=== PATIENT | male | born 1995 | race Caucasian/White ===

== ENCOUNTER → 2020-02-24 13:03 | Outpatient (BNVA) | payer OTHER, SELFPAY | PROVIDERS: Visit Provider Orthopaedic Surgery | DX: Z76.89 Persons encountering health services in other specified circumstances (principal) ==

== ENCOUNTER → 2020-03-03 10:41 | Outpatient (BNVA) | payer OTHER, SELFPAY | PROVIDERS: Visit Provider Orthopaedic Surgery | DX: Z76.89 Persons encountering health services in other specified circumstances (principal) ==

== ENCOUNTER 2020-04-12 15:50 | Outpatient (REF) | payer OTHER, SELFPAY ==
[2020-04-12 16:26] LABS: MANUAL DIFF FLAG NO
[2020-04-12 16:28] LABS: Basophils Absolute Auto 0.1 X10*3/uL (0.0-0.2); Basophils Percent Auto 0.6 % (0-2); Eosinophils Absolute Auto 0.1 X10*3/uL (0.0-0.4); Eosinophils Percent Auto 1.4 % (0-4); Hematocrit 48.1 % (42-52); Hemoglobin 16.1 g/dl (14.0-18.0); Imm Gran Abs Auto 0.02 X10*3/uL (0.00-0.03); Imm Gran Pct Auto 0.3 % (0.0-0.4); Lymphocytes Absolute Auto 2.2 X10*3/uL (1.2-4.9); Lymphocytes Percent Auto 28.2 % (20-40); Mean Corpuscular HGB Conc 33.5 g/dl (31.0-36.0); Mean Corpuscular Hemoglobin 30.3 pg (27.0-33.0); Mean Corpuscular Volume 90.6 fL (80-98); Mean Platelet Volume 8.9 fL (9.4-12.4); Monocytes Absolute Auto 0.5 X10*3/uL (0.1-1.2); Monocytes Percent Auto 6.7 % (2-11); Neutrophils Absolute Auto 4.9 X10*3/uL (2.0-8.3); Neutrophils Percent Auto 62.8 % (45-73); Platelet Count 304 X10*3/uL (160-400); Red Blood Count 5.31 X10*6/uL (4.60-5.80); Red Cell Distribution Width 12.1 % (11.0-16.0); White Blood Count 7.8 X10*3/uL (4.8-10.8)
[2020-04-12 17:22] LABS: TSH reflex Free T4 0.82 mIU/mL (0.32-4.0)
[2020-04-12 19:31] LABS: CDIFF Ag Negative (Negative); CDIFF Internal ctrl Dots and bkg OK (V); CDiff Toxin Negative (Negative)
== END 2020-04-12 15:51 | disposition home or self-care (01) ==
LOC: HO.LAB 15:50
PROVIDERS: PCP Nurse Practitioner Family; Visit Provider Nurse Practitioner Family
DX: R19.7 Diarrhea, unspecified (principal)
CPT/HCPCS: 84443; 85025; 87045; 87046; 87177; 87209; 87324; 87329; 87338; 87449

== ENCOUNTER → 2020-04-22 11:41 | Outpatient (BNVA) | payer OTHER, SELFPAY | PROVIDERS: PCP Nurse Practitioner Family; Visit Provider Physician Assistant ==

== ENCOUNTER 2020-05-01 10:15 | Outpatient (REF) | payer OTHER, SELFPAY ==
[2020-05-01 11:08] LABS: C Reactive Protein 0.08 mg/dL (< or = 0.50)
[2020-05-01 11:29] LABS: Erythrocyte Sedimentation Rate 2 MM/HR (0-15)
[2020-05-07 23:41] LABS: Calprotectin, Fecal 120 mcg/g
== END 2020-05-01 10:16 | disposition home or self-care (01) ==
LOC: HO.LAB 10:15
PROVIDERS: PCP Nurse Practitioner Family; Visit Provider Physician Assistant
DX: R19.7 Diarrhea, unspecified (principal)
CPT/HCPCS: 36415; 83993; 85652; 86140

== ENCOUNTER → 2020-05-13 14:28 | Outpatient (BNVA) | payer OTHER, SELFPAY | PROVIDERS: PCP Nurse Practitioner Family; Visit Provider Physician Assistant ==

== ENCOUNTER 2020-05-18 11:53 | Day surgery (SDC) | payer OTHER, SELFPAY ==
--- NOTE | 2020-05-17 08:36 | HO.ANESPROP2 ---
Documented by User: Vicky Segundo 05/17/20 08:37 HPI - Anesthesia Eval Consult details Narrative: 25yo M for Upper Endoscopy and Colonoscopy [facility] Active Problems Active Problems: All Active Problems (Updated 05/16/20 @ 15:43 by Karon Buck PA-C) Chronic diarrhea (Acute) Diarrhea (Acute) Acne (Acute) Injury of anterior cruciate ligament (Acute) Left ACL tear (Acute) Illness (Acute) Past Medical History Medical History Chronic diarrhea Radius/ulna fracture S/P ORIF (open reduction internal fixation) fracture (~2013) Family History Family History Mother No problems noted. Father No problems noted. 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 Meds Allergies Allergy/AdvReac Type Severity Reaction Status Date / Time amoxicillin Allergy Unknown Unknown Verified 05/13/20 14:28 Cefzil Allergy Unknown Unknown Verified 05/13/20 14:28 Exam Exam Date and Time: May 17, 2020 0836 Pertinent Lab Results Pertinent Lab Results: Laboratory Tests 04/12/20 16:12 WBC 7.8 Hgb 16.1 Hct 48.1 Plt Count 304 Assessment and Plan Assessment Anesthesia Assessment: Chart Reviewed Documented by User: Marisela Mcwilliams 05/18/20 12:43 [facility] Past Medical History Medical History Chronic diarrhea Radius/ulna fracture S/P ORIF (open reduction internal fixation) fracture (~2013) Family History Family History Mother No problems noted. Father No problems noted. Maternal Grandfather Diabetes Maternal Grandmother Diabetes Family history of problems with anesthesia: No Surgical History History of Problems with Anesthesia: No Social History Social History (Updated 05/18/20 @ 12:42 by Marisela Mcwilliams) Household Members: Friend(s) Housing: Apartment Alcohol intake: current Alcohol intake frequency: a few times a month Smoking Status: Never smoker Substance Use Type: Marijuana Last Used Substance: Hours (ago) Last Used Substance Other:: Last night Advance Directives: No Advance Directives Information Provided: Yes Recently lost weight without trying: No Current occupational status: employed 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 Meds Allergies Allergy/AdvReac Type Severity Reaction Status Date / Time amoxicillin Allergy Unknown Unknown Verified 05/13/20 14:28 Cefzil Allergy Unknown Unknown Verified 05/13/20 14:28 Exam Height,Weight and Vital Signs: Vital Signs Temp Pulse Resp BP Pulse Ox 05/18/20 12:22 98.9 F 84 16 124/67 97 Airway Mallampati Class: III (Gags when he tries to protrude tongue) TM Dist: >3cm Neck ROM: Full Heart: RRR Lungs: CTAB Assessment and Plan Assessment Anesthesia Assessment: Anesthesia Plan Discussed and Chart Reviewed Final Anesthetic Review NPO: Yes ASA Class: II Final Preanesthetic Review: No Changes in Pt Med Stat, Meds/Allgs Chart Reviewed, Consent Obtained/Reviewed and Anes Risks/Benef Reviewed Patient Risk: Low Procedure Risk: Low Assessment/Block/Sedation in SS: Assess/Block/Sedation-SS Anesthetic Plan Anesthetic Plan: MAC: Disposition: Standard PACU
[2020-05-18 12:14] VITALS: BMI 25.1
[2020-05-18 12:22] VITALS: BP 124/67; PULSE 84; RESP 16; TEMP 37.2; O2SAT 97
[2020-05-18] MEDS: Lactated Ringers 1,000 ML 100 ML IVCONT (12:49)
--- NOTE | 2020-05-18 12:58 | MHC.SHP ---
Pre-Procedural Eval Section B Chief Complaint: colitis Relevant Family History (Specify if Yes): No Relevant Social History: Other (specify) (THC) Present Medications: see Short Stay Collaborative assessment Medical History: Significant History (Chronic diarrhea Radius/ulna fracture S/P ORIF (open reduction internal fixation) fracture (~2013)) History of Previous Operations: Relevant previous surgery/procedure and date(s) Allergies: Allergies Allergy/AdvReac Type Severity Reaction Status Date / Time amoxicillin Allergy Unknown Unknown Verified 05/13/20 14:28 Cefzil Allergy Unknown Unknown Verified 05/13/20 14:28 Review of Systems Sugical H&P ROS: Negative: Constitution, Cardiovascular, Respiratory, Neurological, Psychiatric, Hem-Onc, Allergic/Immunologic, Gastrointestinal, Genitourinary, Musculoskeletal, Integumentary, Endocrine and Eyes/Ears/Nose/Throat Exam Surgical H&P Exam: Normal: HEENT, Normal: Heart, Normal: Lungs, Normal: Extremities, Normal: Abdomen, Normal: Skin and Normal: Neurological Plan Diagnosis/Plan: Unchanged I have reviewed the history and physical and performed a pertinent physical examination on my patient. No changes have occurred unless specified.
--- NOTE | 2020-05-18 13:47 | PM.OP ---
Brief Operative Note Date of Service: 05/18/20 Pre-op diagnosis: diarrhea Post-op diagnosis: same Procedure: see op note Surgeon: Evelyn Floyd MD Anesthesia: MAC Estimated blood loss (mL): 0 Condition: stable Disposition: PACU
--- NOTE | 2020-05-18 13:48 | W.PM.OPN ---
Operative Note Operative Note Date of Service: 05/18/20 Narrative: Operative Information Procedure Description: EGD, Colonoscopy FLEXIBLE TRANSORAL UPPER GASTROINTESTINAL ENDOSCOPY AND COLONOSCOPY PROCEDURE NOTE UPPER ENDOSCOPY Consent: Indications for the procedure and potential complications of bleeding, perforation, reaction to medications and missed diagnosis were discussed with the patient and informed consent was obtained. Instrument: Olympus GIF H 190 J mid size upper endoscope Monitoring: Vital signs and clinical assessment, continuous EKG monitoring, Pulse oximetry, Carbon Dioxide monitoring and blood pressure monitoring were done throughout the procedure. Procedure: The patient was placed in the left lateral decubitis position and pre-procedure medications were administered and a bite block was placed. The endoscope was inserted into the mouth and advanced under direct vision to the third part of duodenum. A careful inspection was made as the upper endoscope was withdrawn including a retroflexed examination of the proximal stomach; Findings and interventions are described below. Findings: Larynx:normal Esophagus: GE junction at 38 cm, diaphragm hiatus at 38 cm, normal mucosa, bx taken Stomach: Mild gastritis. Biopsies were obtained. Grade 2 flap valve on retroflexed examination of the cardia. Duodenum: bulbar erythema with small erosion, bx taken Intervention: Biopsies as noted above COLONOSCOPY Instrument: Olympus variable stiffness pediatric scope 190L Colonoscopy Monitoring: Vital signs and clinical assessment, continuous EKG monitoring, Pulse oximetry, Carbon Dioxide monitoring and blood pressure monitoring were done throughout the procedure. Colon withdrawal time was 15 minutes. Procedure: The patient was placed in the left lateral decubitis position and pre-procedure medications were administered. After a digital rectal examination of the ano-rectum, the video colonoscope was inserted into the rectum and advanced through the colon to the cecum/TI. The colonoscope was slowly withdrawn in a retrograde panoramic fashion and the colon mucosa was carefully examined including a retroflexed view of the rectum. Findings and interventions are described below. Procedure Difficulty:easy Findings: Terminal Ileum-normal, bx taken right side and transverse/left colon bx taken in separate jars Cecum:normal Ascending Colon: normal Transverse Colon -normal Descending Colon:normal Sigmoid Colon: normal Rectum: Retroflexion with small internal hemorrhoids, grade I-skin tags noted Anorectum - normal Colon preparation: [place] Bowel Preparation Scale Right colon; 3 Transverse colon: 3 Left colon; 3 (0 = Unprepared colon segment with mucosa not seen due to solid stool that cannot be cleared. 1 = Portion of mucosa of the colon segment seen, but other areas of the colon segment not well seen due to staining, residual stool and/or opaque liquid. 2 = Minor amount of residual staining, small fragments of stool and/or opaque liquid, but mucosa of colon segment seen well. 3 = Entire mucosa of colon segment seen well with no residual staining, small fragments of stool or opaque liquid) Impression and Post Procedure Diagnosis: Endoscopy Findings: gastritis duodenitis Colonoscopy Findings: internal hemorrhoids Plan: Await Pathology results Repeat Colonoscopy aged 45 years or earlier if clinically indicated High fiber diet leaflet avoid straining at stool, epsom salts and sitz bath, anusol supps or cream as needed if bx neg then consider CTe (c diff, giardia and other lasb noted and were neg recently) may benefit from trial of PPI, check nsaid usage Above findings were reviewed with the patient and relevant handouts were provided if indicated.
[2020-05-18 13:53] VITALS: BP 105/42; PULSE 77; RESP 20; TEMP 36.3; O2SAT 98
[2020-05-18 14:08] VITALS: BP 101/46; PULSE 65; RESP 16; O2SAT 97
[2020-05-18 14:23] VITALS: BP 97/52; PULSE 60; RESP 16; O2SAT 99
[2020-05-18 14:37] VITALS: BP 114/72; PULSE 74; RESP 17; O2SAT 100
== END 2020-05-18 15:14 | disposition home or self-care (01) ==
PROVIDERS: PCP Nurse Practitioner Family; Visit Provider Internal Medicine Gastroenterology
PROC: (CPT 45380; principal; 2020-05-18 13:50)
DX: K52.9 Noninfective gastroenteritis and colitis, unspecified (principal); K64.8 Other hemorrhoids; F12.90 Cannabis use, unspecified, uncomplicated; K29.50 Unspecified chronic gastritis without bleeding; K29.80 Duodenitis without bleeding; K44.9 Diaphragmatic hernia without obstruction or gangrene; K64.4 Residual hemorrhoidal skin tags
CPT/HCPCS: 45380; 43239; 88305; 88342

== ENCOUNTER 2020-06-11 13:37 | Outpatient (REF) | payer OTHER, SELFPAY ==
--- NOTE | ~2020-06-11 | CT_ITS ---
EXAMINATION: CT ENTEROGRAPHY ABDOMEN AND PELVIS WITH CONTRAST CLINICAL INFORMATION: Noninfected gastroenteritis and colitis COMPARISON: None TECHNIQUE: Study performed with oral VoLumen (1350 mL) and 480 mL of water to distend the abdomen. The patient was injected with 85 mL Omnipaque 350 intravenous contrast which was administered without adverse effect. Coronal and sagittal reformatted images were obtained at the technologist's workstation. This CT examination was performed using dose optimization techniques as appropriate, variously including the following: *Automated exposure control *Adjustment of mA and/or kV according to patient size (this includes techniques or standardized protocols for targeted exams where dose is matched to indication/reason for exam; i.e. extremities or head) *Use of iterative reconstruction technique DLP: 273 mGy-cm FINDINGS: GASTROINTESTINAL FINDINGS: Stomach: Well-distended and normal in appearance. Small intestine: Satisfactorily distended and normal in appearance. Large intestine: Well-distended and normal in appearance. No perirectal changes demonstrated. The appendix is not seen. Additional findings: No abnormal enhancement of the vasa recta or significant mesenteric or retroperitoneal lymphadenopathy is seen. No abdominal abscess or fistulous tract demonstrated. ABDOMINAL AND PELVIC CT FINDINGS: Liver, gallbladder, biliary tract: Normal Pancreas: Normal Spleen: Normal Adrenal glands and kidneys: Normal Ureters and bladder: Normal Lymphovascular structures: Normal Bones: Normal Lung bases: Normal CT/CT enterography IMPRESSION: Unremarkable examination.
[2020-06-11] MEDS: Sorbitol/Mannit/Xanth Imaging 500 ML LIQUID 1500 ML PO (15:41)
== END 2020-06-11 13:38 | disposition home or self-care (01) ==
LOC: HO.US 13:37
PROVIDERS: Visit Provider Internal Medicine Gastroenterology
DX: K52.9 Noninfective gastroenteritis and colitis, unspecified (principal)
CPT/HCPCS: 74177; Q9967

== ENCOUNTER → 2020-07-20 11:34 | Outpatient (BNVA) | payer OTHER, SELFPAY | PROVIDERS: PCP Nurse Practitioner Family; Visit Provider Internal Medicine Gastroenterology ==

== ENCOUNTER → 2020-09-08 09:07 | Outpatient (BNVA) | payer OTHER, SELFPAY | PROVIDERS: PCP Nurse Practitioner Family; Visit Provider Orthopaedic Surgery ==

== ENCOUNTER 2020-09-23 06:02 | Day surgery (SDC) | payer OTHER, SELFPAY ==
[2020-09-15 14:23] VITALS: BMI 24.7
--- NOTE | 2020-09-22 08:29 | P.CONAN_ITS ---
Documented by User: Vicky Segundo 09/22/20 08:30 HPI - Anesthesia Eval Consult details Narrative: 25yo M for Left ACL Allograft Reconstruction [facility] Active Problems Active Problems: All Active Problems (Updated 09/15/20 @ 14:28 by Samantha Esposito) Illness (Acute) Left ACL tear (Acute) Injury of anterior cruciate ligament (Acute) Acne (Acute) Diarrhea (Acute) Chronic diarrhea (Acute) Past Medical History Medical History Chronic diarrhea COVID-19 vaccine series completed Radius/ulna fracture Family History Family History Mother No problems noted. Father No problems noted. Maternal Grandfather Diabetes Maternal Grandmother Diabetes Family history of problems with anesthesia: No Surgical History Surgical History History of esophagogastroduodenoscopy (EGD) Hx of colonoscopy S/P ORIF (open reduction internal fixation) fracture (~2013) History of Problems with Anesthesia: No Social History Social History Household Members: Friend(s) Household Members Other:: roomates Housing: Apartment Are you a primary careers counsellor to a significant other at home: No Do you presently have visiting nurse or other home services: No Alcohol intake: current Alcohol intake frequency: a few times a month Patient Tobacco Use Status: Never used Tobacco Use of substances other than those prescribed or required for medical reasons: Yes Substance Use Type: Marijuana Substance Use Frequency: Daily Have you been hit, kicked, punched, or otherwise hurt by someone within the past year? 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 Allergies Allergy/AdvReac Type Severity Reaction Status Date / Time amoxicillin Allergy Unknown Hives Verified 09/15/20 14:22 Cefzil Allergy Unknown Hives Verified 09/15/20 14:22 Exam Exam Date and Time: September 22, 2020 0829 Height,Weight and Vital Signs: Height 5 ft 3 in Weight 63.503 kg Assessment and Plan Assessment Anesthesia Assessment: Chart Reviewed Documented by User: Janice Campos 09/23/20 07:47 [facility] Past Medical History Medical History Chronic diarrhea COVID-19 vaccine series completed Radius/ulna fracture Family History Family History Mother No problems noted. Father No problems noted. Maternal Grandfather Diabetes Maternal Grandmother Diabetes Surgical History Surgical History History of esophagogastroduodenoscopy (EGD) Hx of colonoscopy S/P ORIF (open reduction internal fixation) fracture (~2013) Social History Social History Household Members: Friend(s) Household Members Other:: roomates Housing: Apartment Are you a primary careers counsellor to a significant other at home: No Do you presently have visiting nurse or other home services: No Alcohol intake: current Alcohol intake frequency: a few times a month Patient Tobacco Use Status: Never used Tobacco Use of substances other than those prescribed or required for medical reasons: Yes Substance Use Type: Marijuana Substance Use Frequency: Daily Have you been hit, kicked, punched, or otherwise hurt by someone within the past year? 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 Allergies Allergy/AdvReac Type Severity Reaction Status Date / Time amoxicillin Allergy Unknown Hives Verified 09/15/20 14:22 Cefzil Allergy Unknown Hives Verified 09/15/20 14:22 Exam Airway Mallampati Class: II TM Dist: >3cm Neck ROM: Full Assessment and Plan Assessment Anesthesia Assessment: Anesthesia Plan Discussed and Chart Reviewed Final Anesthetic Review NPO: Yes ASA Class: I Final Preanesthetic Review: No Changes in Pt Med Stat, Meds/Allgs Chart Reviewed, Consent Obtained/Reviewed and Anes Risks/Benef Reviewed Patient Risk: Low Procedure Risk: Low Assessment/Block/Sedation in SS: Assess/Block/Sedation-SS Anesthetic Plan Anesthetic Plan: GA Disposition: Standard PACU
[2020-09-23] VITALS (13 sets, daily range): BP systolic 99–138; BP diastolic 53–89; PULSE 53–93; RESP 12–16; TEMP 36.3–36.7; O2SAT 89–99
[2020-09-23] MEDS: Lactated Ringers 1,000 ML 100 ML IVCONT (06:40)
--- NOTE | 2020-09-23 07:22 | MHC.SHP ---
Pre-Procedural Eval Section A Date of Service: 09/23/20 The patient is an INPATIENT: No Changes since office visit: No Cold of Flu in the past 2 weeks, No New Medical Problems, No Changes in Medication and No Patient answered all questions The History & Physical has been completed within 30 days and I have reviewed it.: Yes Section B Chief Complaint: sprain of anterior cruciate ligament Allergies: Allergies Allergy/AdvReac Type Severity Reaction Status Date / Time amoxicillin Allergy Unknown Hives Verified 09/15/20 14:22 Cefzil Allergy Unknown Hives Verified 09/15/20 14:22 Plan I have reviewed the history and physical and performed a pertinent physical examination on my patient. No changes have occurred unless specified.
--- NOTE | 2020-09-23 08:49 | P.OP_ITS ---
Operative Note Operative Note Date of Service: 09/23/20 Narrative: OPERATIVE NOTE-ACL RECONSTRUCTION SURGEON: Dr Luis Riley) Instrum COLLEGE AND CAREER COUNSELOR: Bentley BLANCO PREOP DIAGNOSIS: ACL DEFICIENT LEFT KNEE] POSTOP DIAGNOSIS: SAME OPERATIVE PROCEDURE: ACL RECONSTRUCTION WITH BTB ALLOGRAFT LEFT KNEE CLINICAL NOTE: This gentleman injured his knee and subsequent investigations indicated he had an ACL tear of his left knee. After explaining the risk, benefits and alternatives and answering all his questions it was mutually agreed to carry out the following procedure MOTION: Full range of motion STABILITY: Positive Anali's and pivot shift. Collateral ligaments intact OPERATIVE DETAILS PREPARATION: GA, STANDARD TECHNIQUE, tourniquet to 300 mm of mercury for 47 minutes SURGICAL TIME-OUT: Patient is identified. Procedure confirmed. Site confirmed. Medical and allergy history is reviewed. Preoperative antibiotics were given. Standard DVT prophylaxis in place. All other items discussed and agreed upon. INCISIONS: Superolateral, inferolateral, inferomedial stab incisions. Proximal medial metaphyseal incision for tibial tunnel and graft insertion SYNOVIUM: Clear SYNOVIAL fluid: Clear MEDIAL COMPARTMENT: medial meniscus, femoral and tibial articular surfaces were stable and intact LATERAL COMPARTMENT: lateral meniscus, femoral and tibial articular surfaces and popliteus tendon all stable and intact ANTERIOR COMPARTMENT: medial and lateral gutters clear, suprapatellar pouch clear, patella and femoral sulcus articular surfaces intact INTERCONDYLAR NOTCH: He ACL was visualized scarred back to PCL. There was very narrow notch. Using the Ultra cut as well as the ArthroCare the remainder of the ACL was. The soft tissues cleared from intercondylar notch position. Using the Ultra cut the notch was contoured in order to take it from a v-shaped to u shape. Using the Arthrex tibial guide tibial tunnel was established through an incision in the proximal medial aspect of the tibia in standard fashion. The guidewire had been inserted and then the 10 mm headed Reamer was used in order to create canal. Soft tissues removed and the canal was rasped. Simultaneous to the tibial tunnel being established, the allograft was prepared. It measured to 110 mm length. Both bone blocks for 30 mm. Drill holes were placed in both ends. The femoral side had Maxon sutures placed. The tibial si de had Tycron sutures placed. The graft was then protected. The femoral tunnel was established in standard fashion using the [id number] guide. It was taken out to the 2 o'clock position. It was then drilled with the Carmageddonh guidewire. The 10 mm headed Reamer was then placed over the guidewire taken through the tibial tunnel to the physician in the [id number] position of the femur. A footprint was made. There was good posterior wall. It was then reamed out to a 35 mm depth. The coin machine assembler Was used in standard fashion. The knee was then flushed of all bony fragments. The graft was brought up. The Maxon sutures were placed through the eye of the Beath needle the graft was then passed through the tibial tunnel, across the PCL and easily into the femoral tunnel. Through the inferomedial portal the guidewire for the BioScrew was placed. The knee was flexed up until it was parallel. An 8 x 25 mm screw was then inserted with excellent purchase. The knee was then cycled a number of times. With the knee now it 15 degrees of flexion with the graft it tension and over a guidewire, an 8 x 25 mm BioScrew was inserted in the tibial side. At this point the knees had easy full range of motion. Had a negative Anali's and pivot shift. And therefore proceeded to closure. The tourniquet was let down at this point. Incisions approximated using interrupted 3-0 Polysorb. Dermabond Steri-Strips and sterile dressing were then applied. The knee was then placed in a knee brace locked straight. The anesthesia was then reversed patient was then transferred to the room bed and then taken to the recovery room in good condition. Intraoperatively there was no blood loss of significance. No complications.
[2020-09-23] MEDS: fentaNYL citrate/PF 100 MCG/2 ML VIAL 50 MCG IVPUSH (09:37)
[2020-09-23] MEDS: oxyCODONE HCl Immed Release 5 MG TABLET PO ×2 (09:40→10:05)
[2020-09-23] MEDS: Ketorolac Tromethamine 30 MG/ML VIAL IVPUSH (10:20)
--- NOTE | 2020-09-23 13:17 | PC.NURSE ---
1310 PT IN RECOVERY ROOM AFTER EARLIER NAUSEA STS HE FEELS MUCH BETTER NOW AND IS READY TO GO HOME, COLOR IMPROVED WARM DRY PINK, TO DC AREA IN WC @[phone]
== END 2020-09-23 14:01 | disposition home or self-care (01) ==
PROVIDERS: PCP Nurse Practitioner Family; Visit Provider Orthopaedic Surgery
PROC: (CPT 27428; principal; 2020-09-23 07:30)
DX: S83.512A Sprain of anterior cruciate ligament of left knee, initial encounter (principal); X58.XXXA Exposure to other specified factors, initial encounter; Y93.9 Activity, unspecified; Y92.9 Unspecified place or not applicable; Y99.8 Other external cause status; Z88.0 Allergy status to penicillin
CPT/HCPCS: 29888; C1713; C1763; C1769; J0131; J0171; J0690; J1100; J1885; J2250; J2405; J3010

== ENCOUNTER → 2020-10-05 09:32 | Outpatient (BNVA) | payer OTHER, SELFPAY | PROVIDERS: Visit Provider Physician Assistant ==

== ENCOUNTER → 2020-11-02 08:55 | Outpatient (BNVA) | payer OTHER, SELFPAY | PROVIDERS: Visit Provider Physician Assistant ==

== ENCOUNTER → 2020-12-14 09:00 | Outpatient (BNVA) | payer OTHER, SELFPAY | PROVIDERS: Visit Provider Physician Assistant ==

== ENCOUNTER 2021-01-24 12:27 | Outpatient (REF) | payer OTHER, SELFPAY | END 2021-01-24 12:28 | disposition home or self-care (01) | LOC: HO.LAB 12:27 | PROVIDERS: PCP Nurse Practitioner Family; Visit Provider Nurse Practitioner Family | DX: R69 Illness, unspecified (principal); Z20.822 Contact with and (suspected) exposure to COVID-19 | CPT/HCPCS: U0003; U0005 ==

== ENCOUNTER 2021-03-10 09:00 | Outpatient (RCR) | payer OTHER, SELFPAY ==
--- NOTE | 2020-09-28 15:04 | MHC.PT.EP ---
[facility] [place] Office [place] Office [place] Office [address] [phone] F: [phone] F: [phone] F: [phone] F: [phone] Physical Therapy Plan of Care Date of Evaluation: Date of Surgery: 09/23/2020 Diagnosis: ACL Reconstruction L Knee Assessment: Stiven is a 25 y/o male referred to PT 5 days s/p ACL reconstruction L knee. On PT examination he presents with 6/10 pain, increased L knee swelling, decreased L knee flexion, decreased L knee strength, and gait deviations. He would benefit from skilled PT for the aforementioned imapirements to improve his tolerance for ADLs and work-related tasks such as sleeping through the night, dressing, self care, getting out of bed, getting in the car, standing for over 10 minutes, walking, and stair negotiation. He is very motivated for PT and has great family support. Frequency and Duration: The patient will be seen 2x week for 20 weeks Short Term Goals: 1. In 2 weeks patient will present with 50% decreased pain to improve ability for sleeping through the night and self care. 2. In 3 weeks patient will present with improved ROM flexion by 30 degrees to improve ability for dressing and getting in and out of the car. Halfway Goals: 1. 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 2. In 6 weeks patient will present with L LE strength improvement by 1 MMT grade to assist with stair negotiation and ambulating for 30 minutes. 3. In 14 weeks will begin plyometric activities to perform 10 minute cheer leading warm up with 0 episodes of instability. Treatment Plan: Modalities to reduce pain, spasms and effusion. Manual therapy to restore motion and function. Therapeutic exercise to improve strength and flexibility. Neuromuscular re-education for posture and balance. Therapeutic activities to return to functional activities of daily living. Electronically signed by: Lilli Jackson PT, DPT Please sign and return to therapist. Thank you for your referral.
--- NOTE | 2021-03-21 10:41 | MHC.PT.DC ---
[facility] [place] Office [place] Office [place] Office [address] [facility] [phone] F: [phone] F: [phone] F: [phone] F: [phone] Physical Therapy Discharge Report Diagnosis: ACL Reconstruction L Knee Date of Surgery: 09/23/2020 Date of Evaluation: 09/28/20 Date of Discharge: 03/11/21 Treatments to Date: 30 Cancellations to Date: No Shows to Date: Discharge Status: Achieved Goals Improved Function Independent with HEP Discharge Summary: Pt demonstrated good control of motion with all SLS activities today. Denied any pain with activities and demonstrated stability in the surgical leg with all movements. D/C to I with HEP today as pt is moving to [place]. Electronically signed by: ELINA AYALA PT, DPT Please sign and return to therapist. Thank you for your referral.
== END 2021-03-21 10:42 | disposition home or self-care (01) ==
LOC: HO.PT 09:00
PROVIDERS: Visit Provider Physician Assistant
DX: S63.512D Sprain of carpal joint of left wrist, subsequent encounter (principal)
CPT/HCPCS: 97110; 97112; 97116; 97140; 97161; 97530

== ENCOUNTER 2024-05-12 10:35 | Emergency (ER) | payer BC, SELFPAY ==
--- NOTE | ~2024-05-12 | US_ITS ---
EXAMINATION: US ABDOMEN LIMITED CLINICAL INFORMATION: Elevated bilirubin. COMPARISON: None available. TECHNIQUE: Real-time imaging of the right upper quadrant abdominal viscera using grayscale and color Doppler technique. FINDINGS: PANCREAS: No gross peripancreatic fluid collections. There is interposed bowel gas. LIVER: There measures roughly 15 cm. No nodular surface. No solid or cystic lesion. No intrahepatic biliary ductal dilatation. GALLBLADDER: Fluid-filled contracted. No pericholecystic fluid collection or gallbladder wall thickening. COMMON BILE DUCT: 2 mm. RIGHT KIDNEY: 10 cm. Normal echotexture. No solid or cystic lesion. Normal renal cortical thickness. No hydronephrosis. Normal flow on color Doppler interrogation of the renal hilum.. FREE FLUID: None. US/US abdomen limited IMPRESSION: No cholelithiasis. Normal ultrasound liver. No hydronephrosis, right kidney. Electronically signed by: Dayton Naqvi MD 05/12/2024 02:16 PM [facility]
--- NOTE | 2024-05-12 11:40 | ED_ITS ---
HPI - Nausea/Vomiting/Diarrhea General Chief complaint: Nausea/Vomiting/Diarrhea Stated complaint: vomiting Time Seen by Provider: 05/12/24 12:16 Source: patient and family (patient's mother) Mode of arrival: ambulatory Limitations: no limitations History of Present Illness ED Provider: Rosa Elena Fuchs PA-C HPI Narrative: Patient is a 29 year old assigned male at with a history of chronic diarrhea and left ACL repair, presenting to the emergency department today with nausea and vomiting. Patient states that he had the flu days ago, recovered, and then after having some take out dinner - he began to have nausea and vomiting. Patient denies any dizziness, lightheadedness, abdominal pain, fever, chills, blurry vision, double vision, loss of vision, chest pain, difficulty breathing, shortness of breath, back pain, night sweats, pain with urination, increased urinary frequency, increased urinary urgency, blood in his urine or stool, syncope or a near syncopal episode, recent trauma or falls, bowel incontinence, bladder incontinence, or any other complaints at this time. MD elicited complaint: nausea and vomiting Associated nausea: Yes Related Data Previous Rx's ?Medication ?Instructions ?Recorded oxycodone 10 mg tablet 10 mg PO Q4-6H PRN pain #40 tabs 09/23/20 doxycycline hyclate 50 mg capsule 50 mg PO BID 14 days #28 caps 08/01/21 ondansetron 4 mg disintegrating 4 mg PO Q8H PRN nausea and 05/25/22 tablet vomiting #30 tabs ondansetron 4 mg disintegrating 4 mg PO Q8H 3 days #9 tabs 05/12/24 tablet Allergies Allergy/AdvReac Type Severity Reaction Status Date / Time amoxicillin Allergy Unknown Hives Verified 05/12/24 11:43 Cefzil Allergy Unknown Hives Verified 05/12/24 11:43 Review of Systems 2 Constitutional: Constitutional: Reports no additional constitutional complaints, Denies chills, Denies fever(s) and Denies night sweats Eyes: Eyes: Reports no additional eye complaints, Denies blurry vision, Denies change in vision, Denies diplopia, Denies eye discharge, Denies loss of vision and Denies eye pain ENT: Denies dizziness Cardiovascular: Cardiovascular: Reports no additional cardiovascular complaints, Denies chest pain, Denies lightheadedness, Denies Loss of Consciousness and Denies dyspnea Respiratory: Respiratory: Reports no additional respiratory complaints and Denies dyspnea Gastrointestinal: Gastrointestinal: Reports no additional gastrointestinal complaints, Denies abdominal pain, Denies melena, Denies hematochezia, Denies change in bowel habits, Denies change in stool character, Reports nausea and Reports vomiting Genitourinary: Genitourinary: Reports no additional male genitourinary complaints, Denies hematuria, Denies oliguria, Denies difficulty urinating, Denies dysuria, Denies urinary frequency, Denies urinary hesitancy, Denies urinary incontinence and Denies urinary urgency Musculoskeletal: Musculoskeletal: Reports no additional musculoskeletal complaints, Denies numbness and Denies tingling Neurologic: Denies dizziness, Denies loss of vision, Denies numbness and Denies tingling Psychiatric: Psychiatric: Reports no additional psychiatric complaints Endocrine: Endocrine: Reports no additional endocrine complaints Hematologic/Lymphatic: Hematologic/Lymphatic: Reports no additional hematologic/lymphatic complaints Allergic/Immunologic: Allergic/Immunologic: Reports no additional allergic/immunologic complaints [facility] Past Medical History Attestation statement: The following information was validated with the patient. (all information validated with the patient's mother) Source: old records reviewed, obtained from family (patient's mother provided additional history and confirmed the history provided by the patient) and nursing notes reviewed Medical History COVID-19 vaccine series completed Chronic diarrhea Radius/ulna fracture Surgical History History of esophagogastroduodenoscopy (EGD) Hx of colonoscopy S/P ORIF (open reduction internal fixation) fracture (~2013) Family History Family History Mother No problems noted. Father No problems noted. Maternal Grandfather Diabetes Maternal Grandmother Diabetes Social History Social History Household Members: Friend(s) Household Members Other:: roomates Housing: Apartment Are you a primary vp care management to a significant other at home: No Do you presently have visiting nurse or other home services: No Alcohol intake: current Alcohol intake frequency: a few times a month Patient Tobacco Use Status: Never used Tobacco Smoked in Last 30 Days: No Use of substances other than those prescribed or required for medical reasons: Yes Substance Use Type: Marijuana Advance Directives: No Advance Directives Information Provided: No Current occupational status: employed 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 Physical Exam 2 Vital Signs: Vital Signs: Last Vital Signs Temp 98.3 F 05/12/24 12:23 Pulse 83 05/12/24 12:23 Resp 16 05/12/24 12:23 BP 105/69 05/12/24 12:23 Pulse Ox 99 05/12/24 12:23 O2 Del Method Room Air 05/12/24 12:23 BMI result Body Mass Index 22.7 Const: General: cooperative, no acute distress, alert and awake Nutritional Appearance: well nourished Orientation/consciousness: patient oriented x3 Limitations: no limitations HEENT: Head: Yes normal to inspection and Yes atraumatic Ears: hearing grossly normal bilaterally and external ears normal General nose exam: Normal external nose present, no nasal discharge noted and no epistaxis Face and sinus: Yes normal facial exam, No abrasion and No laceration Mouth: Normal oral and palatal mucosa present, no drooling and no muffled voice Eyes: General: appearance normal, both eyes and all related structures P eriorbital: periorbital findings normal Eyelids: Yes eyelids normal C onjunctivae: conjunctivae normal Pupils: Equal, round and reactive pupils present EOM: EOMs intact bilaterally Neck: Neck: Yes normal visual inspection, Yes full ROM and Yes no lymphadenopathy Chest: Chest palpation & inspection: normal inspection of the chest Resp: Effort & Inspection: normal respiratory effort and able to speak in complete sentences GI: Inspection: Yes normal to inspection Palpation (GI): Soft to palpation, not firm, nontender, no guarding and not rigid Neuro: General: patient oriented x3, moves all extremities and CN's II-XI intact bilaterally Cranial nerves: Yes Equal, round and reactive pupils present Cognition (Neuro): normal cognition Extrem: General: Yes normal to inspection, Yes full ROM and Yes capillary refill normal Psych: Appearance: grossly normal Mental Status: mental status grossly normal Affect: normal affect Attitude: cooperative Thought process: N ormal thought process present Thought content: Normal thought content present Insight: Good insight present (Psych) Course Course Course Narrative: 29 yo male with PMH of chronic diarrhea who presents with c/o throwing up all night after eating food. He cannot keep anything down now. 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 Pos diarrhea, no fevers, pos chills, no bloody stools, he has no pain. Just feels weak. At this time suspect viral syndrome will obtain basic labs, ODT zofran. this is a RAPID medical screening exam the rest of the history and physical exam is to be done by the main provider. Medications Administered Discontinued Medications Generic Name Dose Route Start Last Admin Trade Name Marylu PRN Reason Stop Dose Admin Sodium Chloride 1,000 mls @ 999 mls/hr 05/12/24 12:30 05/12/24 14:11 Ns IV 05/12/24 13:30 Infused .Q1H1M JURGEN Infusion Metoclopramide HCl 10 mg 05/12/24 12:27 05/12/24 12:30 Metoclopramide Hcl 10 Mg/2 Ml Vial IVPUSH 05/12/24 12:28 10 mg ONCE ONE Administration Medical Decision Making Medical Decision Making [facility] Narrative: Patient is a 29 year old assigned male at with a history of chronic diarrhea and left ACL repair, presenting to the emergency department today with nausea and vomiting. Patient's physical exam was unremarkable. Patient's blood work showed a mildly elevated BUN of 18 and an elevated bilirubin of 2.4. Patient's abd US showed no acute process. I explained my physical exam findings as well as all test results to the patient and the patient's mother. I answered all questions asked by the patient and the patient's mother. Patient received IV fluids and IV zofran which, upon re-evaluation, he stated it helped his symptoms significantly. I stressed the importance of the patient taking his medication as directed (either prescribed or as the over the counter packaging recommends). I stressed the importance of the patient following up with his primary care provider and his GI specialist. I stressed the importance of the patient returning to the emergency department immediately if his symptoms were to worsen or if he were to develop any dizziness, shortness of breath, difficulty breathing, chest pain, blurry vision, loss of vision, nausea, vomiting, abdominal pain, fever, chills, back pain, or any other complaints. Patient and the patient's mother verbalized agreement and understanding with this treatment plan and discharge. Differential Diagnosis Differential Diagnoses: The differential diagnosis associated with the presentation includes Nausea Vomiting Gastroenteritis Biliary colic Cholecystitis Admission/Observation Consideration of admission/observation: Escalation of care including admission/observation considered Patient would have been admitted to the hospital had his work up had any findings where hospital admission was appropriate and his clinical presentation warranted hospital admission. Lab Data [facility] Lab Attestation statement: I reviewed the patient's lab results. My interpretation of these results are in the [facility] Rationale portion of this note. 05/12/24 12:22 05/12/24 12:22 Labs: Lab Results 05/12/24 Range/Units 12:22 WBC 8.3 (4.8-10.8) X10*3/uL RBC 5.52 (4.60-5.80) X10*6/uL Hgb 16.6 (14.0-18.0) g/dl Hct 47.7 (42.0-52.0) % MCV 86.4 (80.0-98.0) fL MCH 30.1 (27.0-33.0) pg MCHC 34.8 (31.0-36.0) g/dl RDW 12.2 (11.0-16.0) % Plt Count 326 (160-400) X10*3/uL MPV 8.6 L (9.4-12.4) fL Immature Gran % (Auto) 0.5 H (0.0-0.4) % Neut % (Auto) 89.2 H (45-73) % Lymph % (Auto) 4.2 L (20-40) % [place] % (Auto) 6.0 (2-11) % Eos % (Auto) 0.0 (0-4) % Baso % (Auto) 0.1 (0-2) % Lymph # (Auto) 0.4 L (1.2-4.9) X10*3/uL [place] # (Auto) 0.5 (0.1-1.2) X10*3/uL Eos # (Auto) 0.0 (0.0-0.4) X10*3/uL Baso # (Auto) 0.0 (0.0-0.2) X10*3/uL Abs Immat Gran (auto) 0.04 H (0.00-0.03) X10*3/uL Absolute Neuts (auto) 7.4 (2.0-8.3) x10*3/uL Absolute Nucleated RBC 0.000 (0.0-0.012) X10*3/uL Nucleated RBC % (auto) 0.0 (0.0-0.2) /100WBC Sodium 142 (135-145) mmol/L Potassium 4.2 (3.3-5.1) mmol/L Chloride 105 (96-108) mmol/L Carbon Dioxide 30 H (22-29) mmol/L Anion Gap 11 L (12-20) BUN 18 H (9-16) mg/dL Creatinine 0.93 (0.5-1.4) mg/dL Estim Creat Clear Calc 103.7 Estimated GFR > 60 Random Glucose 103 (60-115) mg/dL Calcium 9.3 (8.4-10.2) mg/dL Magnesium 1.9 (1.6-2.6) mg/dL Total Bilirubin 2.4 H (0.0-1.0) mg/dL Direct Bilirubin 0.4 (0.0-0.5) mg/dL AST 24 (5-37) U/L ALT 17 (0-40) U/L Alkaline Phosphatase 53 (39-117) U/L Total Protein 7.6 (6.5-8.0) g/dL Albumin 4.4 (3.5-5.0) g/dL Lipase 5 L (8-78) U/L Influenza Type A (PCR) NEGATIVE (Negative) Influenza Type B (PCR) NEGATIVE (Negative) RSV RNA Qual (PCR) NEGATIVE (Negative) SARS-CoV-2 RNA (RT-PCR) NEGATIVE (Negative) Independent Interpretation I performed an independent interpretation of an: Ultrasound Interpretation: My interpretation is in agreement with the radiologist's impression of this imaging study. L EXAMINATION: US ABDOMEN LIMITED CLINICAL INFORMATION: Elevated bilirubin. COMPARISON: None available. TECHNIQUE: Real-time imaging of the right upper quadrant abdominal viscera using grayscale and color Doppler technique. FINDINGS: PANCREAS: No gross peripancreatic fluid collections. There is interposed bowel gas. LIVER: There measures roughly 15 cm. No nodular surface. No solid or cystic lesion. No intrahepatic biliary ductal dilatation. GALLBLADDER: Fluid-filled contracted. No pericholecystic fluid collection or gallbladder wall thickening. COMMON BILE DUCT: 2 mm. RIGHT KIDNEY: 10 cm. Normal echotexture. No solid or cystic lesion. Normal renal cortical thickness. No hydronephrosis. Normal flow on color Doppler interrogation of the renal hilum.. FREE FLUID: None. US/US abdomen limited IMPRESSION: No cholelithiasis. Normal ultrasound liver. No hydronephrosis, right kidney. Electronically signed by: Dayton Naqvi MD 05/12/2024 02:16 PM [facility] Dictated By: Dayton Machado MD Signed By: Electronically signed by Dayton Lewis MD 05/12/24 1416 Radiology Impression Discussion of test interpretation with radiology: I have reviewed the radiologist's reading. Independent Historian Clinical information obtained from an independent historian. History obtained from or confirmed by: Parent (patient's mother provided additional history and confirmed the history provided by the patient.) Discharge Plan Discharge Clinical Impression: Gastroenteritis Patient Disposition: Home, Self-Care Instructions: Gastroenteritis (DC) Additional Instructions: Follow up with your primary care provider and your GI specialist. Return to the emergency department immediately if your symptoms worsen or if you develop any dizziness, shortness of breath, difficulty breathing, chest pain, blurry vision, loss of vision, nausea, vomiting, abdominal pain, fever, chills, back pain, or any other complaints. Prescriptions: New ondansetron 4 mg tablet,disintegrating 4 mg PO Q8H 3 Days Qty: 9 0RF No Action doxycycline hyclate 50 mg capsule 50 mg PO BID 14 Days Qty: 28 2RF Rx Instructions: please take with a probiotic ondansetron 4 mg tablet,disintegrating 4 mg PO Q8H PRN (Reason: nausea and vomiting) Qty: 30 1RF oxycodone 10 mg tablet 10 mg PO Q4-6H PRN (Reason: pain) Qty: 40 0RF Referrals: Truman Almendarez, SECRETARY ADMINISTRATIVE ASSISTANT-BC [Primary Care Provider] - Stand Alone Forms: Work/School Release Interventions: ED Discharge Assessment Last Done: 05/12/24 14:39 Print Language: Thai
[2024-05-12 11:42] VITALS: BP 112/68; PULSE 101; RESP 16; TEMP 37.2; O2SAT 98; BMI 22.7
[2024-05-12 12:23] VITALS: BP 105/69; PULSE 83; RESP 16; TEMP 36.8; O2SAT 99
[2024-05-12] MEDS: Metoclopramide HCl 10 MG/2 ML VIAL IVPUSH (12:30)
[2024-05-12] MEDS: 0.9 % Sodium Chloride 1,000 ML 999 ML IV (12:30)
[2024-05-12 12:32] LABS: MANUAL DIFF FLAG NO
[2024-05-12 12:35] LABS: Basophils Percent Auto 0.1 % (0-2); Hematocrit 47.7 % (42.0-52.0); Hemoglobin 16.6 g/dl (14.0-18.0); Imm Gran Abs Auto 0.04 X10*3/uL (0.00-0.03); Imm Gran Pct Auto 0.5 % (0.0-0.4); Lymphocytes Absolute Auto 0.4 X10*3/uL (1.2-4.9); Lymphocytes Percent Auto 4.2 % (20-40); Mean Corpuscular HGB Conc 34.8 g/dl (31.0-36.0); Mean Corpuscular Hemoglobin 30.1 pg (27.0-33.0); Mean Corpuscular Volume 86.4 fL (80.0-98.0); Mean Platelet Volume 8.6 fL (9.4-12.4); Monocytes Absolute Auto 0.5 X10*3/uL (0.1-1.2); Neutrophils Absolute Auto 7.4 x10*3/uL (2.0-8.3); Neutrophils Percent Auto 89.2 % (45-73); Platelet Count 326 X10*3/uL (160-400); Red Blood Count 5.52 X10*6/uL (4.60-5.80); Red Cell Distribution Width 12.2 % (11.0-16.0); White Blood Count 8.3 X10*3/uL (4.8-10.8)
[2024-05-12 13:13] LABS: Influenza A PCR NEGATIVE (Negative); Influenza B PCR NEGATIVE (Negative); Resp Syncy Virus RNA Qual PCR NEGATIVE (Negative); SARS COV2 PCR INHOUSE NEGATIVE (Negative)
[2024-05-12 13:21] LABS: Alanine Aminotransferase 17 U/L (0-40); Albumin Level 4.4 g/dL (3.5-5.0); Alkaline Phosphatase 53 U/L (39-117); Anion Gap 11 (12-20); Aspartate Amino Transferase 24 U/L (5-37); Bilirubin Direct 0.4 mg/dL (0.0-0.5); Bilirubin Total 2.4 mg/dL (0.0-1.0); Blood Urea Nitrogen 18 mg/dL (9-16); Calcium 9.3 mg/dL (8.4-10.2); Carbon Dioxide 30 mmol/L (22-29); Chloride 105 mmol/L (96-108); Creatinine Clr Calc Pharmacy 103.7; Estimated Glomerular Filt Rate > 60; Glucose Random 103 mg/dL (60-115); Lipase 5 U/L (8-78); Magnesium 1.9 mg/dL (1.6-2.6); Potassium 4.2 mmol/L (3.3-5.1); Sodium 142 mmol/L (135-145); Total Protein 7.6 g/dL (6.5-8.0)
[2024-05-12 14:39] VITALS: BP 105/69; PULSE 83; RESP 16; TEMP 36.8; O2SAT 99
--- OUTSIDE RECORDS SUMMARY | 2024-05-12 14:39 | XMS_ITS | Data Portability ---
Author Organization [facility], [employer] [facility] Address [address] [place] [id number] Assessment No assessment recorded. Plan of Treatment Reminders Order Date Submit Date Provider Last Modified By Organization Details Last Modified Time Details Appointments None recorded. Lab drug of abuse panel, urine - chain of custody - 10 drug screen [phone] Patient Reg, [address] [place], [address], 9 08:03:06 Referral None recorded. Procedures None recorded. Surgeries None recorded. Imaging None recorded. Medication Orders None recorded. Patient TargetsNo targets recorded. Patient Instructions Encounter Date Encounter Id Patient Instructions Last Modified By Organization Details Last Modified Time 11/28/2018 [id number] vision screen* [email or web address] Not availab le 11/28/2018 11:58:07 Reason for Referral None Reported. Results Created Date Observation Date Name Description Value Unit Range Abnormal Flag Note LastModifiedBy Organization Detail LastModifiedTime 11/29/1911/28/2018 visio n scree n* Unknown Analyte Not Available [address], [address], 11/28/2018 11:38:36 11/29/1911/28/2018 visio n scree n* Unknown Analyte Not Available [address], [address], 11/28/2018 11:38:36 11/29/1911/28/2018 visio n scree n* Unknown Analyte Not Available [address], [address], 11/28/2018 11:38:36 11/29/19 19 11/28/2018 visio n scree n* Unknown Analyte No Not Available [facility] [address] [facility] [address], [place], [address], 11/28/2018 11:38:36 11/29/19 19 11/28/2018 drug scree n, urine drugs abuse scr SEE RE[facility] normal Not Available [facility] [address] [place], [address], 11/28/2018 14:00:36 Result Notes None recorded. Problems No Known Problems Medical Equipment None Reported. Allergies Allergen ID Allergen Name Allergen Category Reaction Reaction Severity Criticality Documentation Date Start Date Code Code System Note Provider Name and Address Organization Details Recorded Time [id number] amoxicill in medicatio n Not available Not available Not available 11/28/2018 723 RxNorm [place] Gardner [facility] 9 11:47:38 [id number] cefprozil medicatio n Not available Not available Not available 11/28/2018 62653 RxNorm [place] Gardner [facility] 9 11:48:15 Medications Not known to be on any medication Vitals Date Recorded Heart rate Body height Body mass index (BMI) Body weight Systolic blood pressure Diastolic blood pressure Provider Name and Address Organization Details Last Updated DateTime 9 66 /min 160.02 cm 24.6 kg/m2 09483.3 4 g 116 mm[Hg] 72 mm[Hg] Wanda Hyde [place] [facility] 9 11:47:17 Social History None recorded. Functional Status None recorded. Mental Status None recorded. Family History Nothing Reported. Medical History No medical history recorded. Past Encounters Encounter ID Performer Location Encounter Start Date Encounter Closed Date Diagnosis/Indication Diagnosis SNOMED-CT Code Diagnosis ICD10 Code Diagnosis Note [id number] DONELL Martins Occup[employer] community [facility] Medicine [address] [facility],[address] [place] [id number] 11/28/2018 11:33:05 11/28/2018 11:58:44 History and physical examination, pre-employment 365223569 Z02.1 Normal exam. Urine drug screen obtained today. Paperwork provided to pt. See scanned papers. Medically cleared for employment pending urine drug screen results Ophthalmic examination and evaluation 57053305 Z01.00 Pass Health Concerns Section Related Observation LastModified by Organization Detai ls LastModified Time None Recorded Concern Status LastModified by Organization Details LastModified Time None Recorded Advance Directives Directive None Recorded Payers Encounter Date Sequence Insurance Name Policy Number Policy Muro Covered Member ID Muro Member ID Guarantor Name 11/28/2018 [facility] Notes Date Note Type Note Provider Name and Address Organization Details Recorded Time 11/28/2018 text/html Patient 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 He denies any history of work related injuries. DONELL Martins [address] [place] [address], [place], [id number], [facility] 11/28/2018 11:57:52
== END 2024-05-12 14:43 | disposition home or self-care (01) ==
PROVIDERS: Emergency Medicine; Emergency Provider Emergency Medicine; PCP Nurse Practitioner Family
DX: K52.9 Noninfective gastroenteritis and colitis, unspecified (principal); R11.2 Nausea with vomiting, unspecified; R79.89 Other specified abnormal findings of blood chemistry; Z79.899 Other long term (current) drug therapy; Z03.818 Encounter for observation for suspected exposure to other biological agents ruled out
CPT/HCPCS: 0241U; 36415; 76705; 80048; 80076; 83690; 83735; 85025; 96361; 96374; 99284; J2765

== ENCOUNTER → 2024-05-12 13:32 | Outpatient (BNV) | payer BC, SELFPAY | PROVIDERS: Emergency Provider Emergency Medicine; PCP Nurse Practitioner Family; Visit Provider Radiology Diagnostic Radiology | DX: E80.7 Disorder of bilirubin metabolism, unspecified (principal) | CPT/HCPCS: 76705 ==

== ENCOUNTER 2024-05-15 11:57 | Outpatient (REF) | payer BC, SELFPAY ==
[2024-05-15 12:11] LABS: MANUAL DIFF FLAG NO
[2024-05-15 12:27] LABS: Basophils Percent Auto 0.5 % (0-2); Eosinophils Percent Auto 0.9 % (0-4); Hematocrit 46.2 % (42.0-52.0); Hemoglobin 16.2 g/dl (14.0-18.0); Imm Gran Abs Auto 0.04 X10*3/uL (0.00-0.03); Imm Gran Pct Auto 0.9 % (0.0-0.4); Lymphocytes Absolute Auto 1.2 X10*3/uL (1.2-4.9); Mean Corpuscular HGB Conc 35.1 g/dl (31.0-36.0); Mean Corpuscular Hemoglobin 30.2 pg (27.0-33.0); Mean Corpuscular Volume 86.2 fL (80.0-98.0); Mean Platelet Volume 8.7 fL (9.4-12.4); Monocytes Absolute Auto 0.5 X10*3/uL (0.1-1.2); Monocytes Percent Auto 10.6 % (2-11); Neutrophils Absolute Auto 2.7 x10*3/uL (2.0-8.3); Neutrophils Percent Auto 61.1 % (45-73); Platelet Count 276 X10*3/uL (160-400); Red Blood Count 5.36 X10*6/uL (4.60-5.80); Red Cell Distribution Width 11.9 % (11.0-16.0); White Blood Count 4.4 X10*3/uL (4.8-10.8)
[2024-05-15 13:02] LABS: Alanine Aminotransferase 19 U/L (0-40); Albumin Level 4.3 g/dL (3.5-5.0); Alkaline Phosphatase 48 U/L (39-117); Anion Gap 10 (12-20); Aspartate Amino Transferase 23 U/L (5-37); Bilirubin Direct 0.4 mg/dL (0.0-0.5); Bilirubin Total 2.3 mg/dL (0.0-1.0); Blood Urea Nitrogen 13 mg/dL (9-16); Calcium 9.3 mg/dL (8.4-10.2); Carbon Dioxide 29 mmol/L (22-29); Chloride 106 mmol/L (96-108); Estimated Glomerular Filt Rate > 60; Glucose Random 102 mg/dL (60-115); Potassium 3.9 mmol/L (3.3-5.1); Sodium 141 mmol/L (135-145); Total Protein 7.6 g/dL (6.5-8.0)
--- OUTSIDE RECORDS SUMMARY | 2024-05-15 14:30 | XMS_ITS | Data Portability ---
Author Organization [facility], [employer] - [facility] Address [address] [place] [address] Assessment No assessment recorded. Plan of Treatment Reminders Order Date Submit Date Provider Last Modified By Organization Details Last Modified Time Details Appointments None recorded. Lab drug of abuse panel, urine - chain of custody - 10 drug screen [phone] Patient Reg, [address] [place], [address], 9 08:03:06 Referral None recorded. Procedures None recorded. Surgeries None recorded. Imaging None recorded. Medication Orders None recorded. Patient TargetsNo targets recorded. Patient Instructions Encounter Date Encounter Id Patient Instructions Last Modified By Organization Details Last Modified Time 11/28/2018 [id number] vision screen* [email or web address] Not availab le 11/28/2018 11:58:07 Reason for Referral None Reported. Results Created Date Observation Date Name Description Value Unit Range Abnormal Flag Note LastModifiedBy Organization Detail LastModifiedTime 11/29/1911/28/2018 visio n scree n* Unknown Analyte Not Available [address], [address], 11/28/2018 11:38:36 11/29/1911/28/2018 visio n scree n* Unknown Analyte Not Available [address], [address], 11/28/2018 11:38:36 11/29/1911/28/2018 visio n scree n* Unknown Analyte Not Available [address], [address], 11/28/2018 11:38:36 11/29/19 19 11/28/2018 visio n scree n* Unknown Analyte No Not Available [facility] [address], [place], [address], 11/28/2018 11:38:36 11/29/19 19 11/28/2018 drug scree n, urine drugs abuse scr SEE REFERE [facility] normal Not Available [facility] [address] [place], [address], 11/28/2018 14:00:36 Result Notes None recorded. Problems No Known Problems Medical Equipment None Reported. Allergies Allergen ID Allergen Name Allergen Category Reaction Reaction Severity Criticality Documentation Date Start Date Code Code System Note Provider Name and Address Organization Details Recorded Time 689730 amoxicill in medicatio n Not available Not available Not available 11/28/2018 723 RxNorm [place] Gardner [facility] 9 11:47:38 874107 cefprozil medicatio n Not available Not available Not available 11/28/2018 20920 RxNorm [place] Gardner [facility] 9 11:48:15 Medications Not known to be on any medication Vitals Date Recorded Heart rate Body height Body mass index (BMI) Body weight Systolic blood pressure Diastolic blood pressure Provider Name and Address Organization Details Last Updated DateTime 9 66 /min 160.02 cm 24.6 kg/m2 84426.3 4 g 116 mm[Hg] 72 mm[Hg] Wanda Hyde [place] [facility] 9 11:47:17 Social History None recorded. Functional Status None recorded. Mental Status None recorded. Family History Nothing Reported. Medical History No medical history recorded. Past Encounters Encounter ID Performer Location Encounter Start Date Encounter Closed Date Diagnosis/Indication Diagnosis SNOMED-CT Code Diagnosis ICD10 Code Diagnosis Note [id number] DONELL Martins [facility] [address] [place] [address] 11/28/2018 11:33:05 11/28/2018 11:58:44 History and physical examination, pre-employment 717506440 Z02.1 Normal exam. Urine drug screen obtained today. Paperwork provided to pt. See scanned papers. Medically cleared for employment pending urine drug screen results Ophthalmic examination and evaluation 30884022 Z01.00 Pass Health Concerns Section Related Observation LastModified by Organization Detai ls LastModified Time None Recorded Concern Status LastModified by Organization Details LastModified Time None Recorded Advance Directives Directive None Recorded Payers Encounter Date Sequence Insurance Name Policy Number Policy Muro Covered Member ID Muro Member ID Guarantor Name 11/28/2018 [facility] Notes Date Note Type Note Provider Name and Address Organization Details Recorded Time 11/28/2018 text/html 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 He believes, based upon the job description that was provided to him that he can handle all duties and responsibilities of the job. He denies any history of work related injuries. DONELL Martins [address] [place] [address], [place], [address], [facility] 11/28/2018 11:57:52
--- OUTSIDE RECORDS SUMMARY | 2024-05-15 14:30 | XMS_ITS | Data Portability ---
Author Organization DONELL White [facility], [id number] [place] [address] Assessment No assessment recorded. Plan of Treatment Reminders Order Date Submit Date Provider Last Modified By Organization Details Last Modified Time Details Appointments None recorded. Lab urinalysis, dipstick 2021 [email or web address] , [address] [facility], [place], [address], 14:39:43 chlamydia trachomatis + neisseria gonorrhoeae + trichomonas vaginalis DNA panel, DUKE+probe, unspecified specimen 2021 [email or web address], [address] [place] [address], [place], [address], 14:40:56 Referral None recorded. Procedures None recorded. Surgeries None recorded. Imaging None recorded. Medication Orders doxycycline hyclate 100 mg capsule [address] [facility][id number], [address] [place], [address], 14:39:45 Cipro 500 mg tablet [address] [facility] #[id number], [address] [place], [address], 14:39:45 Patient TargetsNo targets recorded. Patient Instructions Encounter Date Encounter Id Patient Instructions Last Modified By Organization Details Last Modified Time 03/16/2022 [id number] Take meds as prescribed. Given cipro in single dose as unable to give ceftriaxone due to allergy. Advised of black box warning. Labs sent for testing. All sexually active men and women should receive periodic testing for STD's. The frequency that these tests should be repeated is dependent upon several factors, including the number of sexual partners, use of barrier contraception, and other factors. Testing should include screening for Chlamydia, Gonorrhea, Syphilis, and HIV. Additional testing may be required if symptoms of specific STD's are present. If you are sexually active, you should follow up with the Local Health Department for HIV testing and any other testing not performed by [facility]. [facility] should be notified and testing should occur as well if concerns exist. ER with severe/worsening symptoms. [email or web address] Not available 03/16/2022 14:39:41 Reason for Referral None Reported. Results Created Date Observation Date Name Description Value Unit Range Abnormal Flag Note LastModifiedBy Organization Detail LastModifiedTime 03/16/2003/20/2022 CT, NG, TRICH VAG BY DUKE chlamydia by DUKE NEGATI VE negati ve Not Available [facility] ([facility]) [address] [place], [address], 03/21/2022 09:36:14 03/16/2003/20/2022 CT, NG, TRICH VAG BY DUKE trich vag by DUKE NEGATI VE negati ve Not Available [facility] ([facility]) [address] [place], [address], 03/21/2022 09:36:14 03/16/20 22 03/21/2022 CT, NG, TRICH VAG BY DUKE gonococcus by DUKE POSITI VE negati ve abnormal Not Available [facility] ([facility]) [address] [place], [address], 03/21/2022 09:36:14 03/16/20 22 03/16/2022 urina lysis , dipst ick Unknown Analyte Normal = light yellow Not Available [facility] [address] [facility], [place], [address], 03/16/2022 12:23:07 03/16/20 22 03/16/2022 urina lysis , dipst ick Unknown Analyte Normal = clear Not Available [facility] [address] [place], [address], 03/16/2022 12:23:07 03/16/20 22 03/16/2022 urina lysis , dipst ick Unknown Analyte Normal = negati ve Not Available [address] [address] [place], [address], 03/16/2022 12:23:07 03/16/20 22 03/16/2022 urina lysis , dipst ick Unknown Analyte Normal = Negati ve Not Available [address] [address] [place], [address], 03/16/2022 12:23:07 03/16/20 22 03/16/2022 urina lysis , dipst ick Unknown Analyte Normal = Negati ve Not Available [address] [address] [place], [address], 03/16/2022 12:23:07 03/16/20 22 03/16/2022 urina lysis , dipst ick Unknown Analyte Normal = 1.010, 1.015, 1.020 Not Available [address] [address] [place], [address], 03/16/2022 12:23:07 03/16/20 22 03/16/2022 urina lysis , dipst ick Unknown Analyte Normal = Negati ve Not Available [address] [address] [place], [address], 03/16/2022 12:23:07 03/16/20 22 03/16/2022 urina lysis , dipst ick Unknown Analyte Normal = 6.5, 7.0, 7.5, 8.0 Not Available [address] [address] [place], [address], 03/16/2022 12:23:07 03/16/20 22 03/16/2022 urina lysis , dipst ick Unknown Analyte Normal = Negati ve Not Available [address] [address] [place], [address], 03/16/2022 12:23:07 03/16/20 22 03/16/2022 urina lysis , dipst ick Unknown Analyte Normal = 0.2, 1.0 Not Available [address] [address] [place], [address], 03/16/2022 12:23:07 03/16/20 22 03/16/2022 urina lysis , dipst ick Unknown Analyte Normal = Negati ve Not Available [facility] [address] [place], [address], 03/16/2022 12:23:07 03/16/20 22 03/16/2022 urina lysis , dipst ick Unknown Analyte Normal = Negati ve Not Available [address] [address] [place], [address], 03/16/2022 12:23:07 03/16/20 22 03/16/2022 urina lysis , dipst ick Unknown Analyte Yellow Not Available [address] [place] [address] [place], [address], 03/16/2022 12:23:07 03/16/20 22 03/16/2022 urina lysis , dipst ick Unknown Analyte Slight ly Cloudy Not Available [facility] [address] [place], [address], 03/16/2022 12:23:07 03/16/20 22 03/16/2022 urina lysis , dipst ick Unknown Analyte Negati ve Not Available [facility] [address], [place], [address], 03/16/2022 12:23:07 03/16/20 22 03/16/2022 urina lysis , dipst ick Unknown Analyte Negati ve Not Available [facility] [address] [place], [address], 03/16/2022 12:23:07 03/16/20 22 03/16/2022 urina lysis , dipst ick Unknown Analyte Negati ve Not Available [facility] [address], [place], [address], 03/16/2022 12:23:07 03/16/20 22 03/16/2022 urina lysis , dipst ick Unknown Analyte 1.025 Not Available [address] [address], [place], [address], 03/16/2022 12:23:07 03/16/20 22 03/16/2022 urina lysis , dipst ick Unknown Analyte Negati ve Not Available [address] [address], [place], [address], 03/16/2022 12:23:07 03/16/20 22 03/16/2022 urina lysis , dipst ick Unknown Analyte 7.0 Not Available [address] [place] [address] [place], [address], 03/16/2022 12:23:07 03/16/20 22 03/16/2022 urina lysis , dipst ick Unknown Analyte Negati ve Not Available [address] [address] [place], [address], 03/16/2022 12:23:07 03/16/20 22 03/16/2022 urina lysis , dipst ick Unknown Analyte 1.0 E.U./d L Not Available [facility] [address] [place], [address], 03/16/2022 12:23:07 03/16/20 22 03/16/2022 urina lysis , dipst ick Unknown Analyte Negati ve Not Available [address] [address] [place], [address], 03/16/2022 12:23:07 03/16/20 22 03/16/2022 urina lysis , dipst ick Unknown Analyte Small Not Available [address] [place] [address] [place], [address], 03/16/2022 12:23:07 Result Notes None recorded. Problems No Known Problems Procedures Surgical History Date Name Laterality Status Provider Name and Address Organization Details Recorded Time 02/17/20 21 reconstruction of anterior cruciate ligament of knee joint completed Delfinadiego Hunt PA - [facility] 03/16/2022 12:21:23 Wrist arthroscopy/surger y completed Delfina Hunt PA - [facility] 03/16/2022 12:21:30 Imaging Results None recorded. Procedure Notes None recorded. Medical Equipment None Reported. Allergies Allergen ID Allergen Name Allergen Category Reaction Reaction Severity Criticality Documentation Date Start Date Code Code System Note Provider Name and Address Organization Details Recorded Time 62302 amoxicill in medicatio n Not available Not available Not available 03/16/2022 723 RxNorm Delfina Hunt null, [place] - [facility] 2 12:19:05 15203 Cefzil medicatio n Not available Not available Not available 03/16/2022 20651 1 RxNorm Delfina Hunt null, [place] - [facility] 12:19:41 Medications Name Sig Start Date Stop Date Status Note LastModified by Organization Details LastModified Time doxycycline hyclate 100 mg capsule Take 1 capsule twice a day by oral route for 7 days. 022 active Not Available Not Available Not Avai lable Cipro 500 mg tablet Take 1 tablet every day by oral route for 1 day. 022 active Not Available Not Available Not Avai lable Vitals Date Recorded Body height Body mass index (BMI) Body weight Oxygen saturation Oxygen saturation in Arterial blood by Pulse oximetry Heart rate Respiratory rate Body temperature Systolic blood pressure Diastolic blood pressure Provider Name and Address Organization Details Last Updated DateTime 160.02 cm 23 kg/m2 24276.0 1 g 99 % 99 % 74 /min 19 /min 97.7 [degF] 107 mm[Hg] 72 mm[Hg] Delfina Hunt PA - [facility] 13:54:12 Date Recorded Body height Provider Name an d Address Organization Details Last Updated DateTime 03/29/2022 160.02 cm KULDEEP MINA PA - [facility] 03/29/2022 15:34:37 Social History Question Answer Notes LastModified by Organizat ion Details LastModified Time Tobacco Smoking Status Never Smoker Delfina Hunt [facility], [place] - [facility] 03/16/2022 12:20:42 What Is Your Level Of Alcohol Consumption? Occasional [email or web address] Information not available 03/16/2022 How Many Times Per Week Do You Consume Alcohol? <1 Time Per Week Information not available 03/16/2022 Are You Currently Employed? Yes [email or web address] Information not available 03/16/2022 What Is The Highest Grade Or Level Of School You Have Completed Or The Highest Degree You Have Received? [id number] [email or web address] Information not available 03/16/2022 What Is Your Water Source? City [email or web address] Information not available 03/16/2022 What Is Your Heat Source? Electric [email or web address] Information not available 03/16/2022 Have You Had Direct Contact, Or Contact During Intimacy, With Monkeypox Rash, Scabs, Or Body Fluids From A Person With Monkeypox? No [email or web address] Information not available 03/16/2022 What Is Your Relationship Status? Unknown [email or web address] Information not available 03/16/2022 Do You Use Any Illicit Or Recreational Drugs? No [email or web address] Information not available 03/16/2022 Have You Recently Traveled Abroad? No [email or web address] Information not available 03/16/2022 Are You Currently In School? No [email or web address] Information not available 03/16/2022 Do You Or Have You Ever Used Any Other Forms Of Tobacco Or Nicotine? No [email or web address] Information not available 03/16/2022 Sex: Unknown Functional Status None recorded. Mental Status None recorded. Family History Relationship Description Onset Age of this Age Resolved Age Notes LastModified by Organization Details LastModified Time Unspecified Relation Heart disease [email or web address] Not available 12:20:10 Medical History No medical history recorded. Past Encounters Encounter ID Performer Location Encounter Start Date Encounter Closed Date Diagnosis/Indication Diagnosis SNOMED-CT Code Diagnosis ICD10 Code Diagnosis Note [id number] [facility] [address] [place] [address] 10/06/2018 08:04:11 10/06/2018 08:35:38 [id number] [address] [facility] [address] [place] [address] 03/14/2020 11:26:17 03/14/2020 16:14:36 [id number] [address] [facility] [facility] [address] [place] [address] 10/16/2017 18:29:14 10/16/2017 19:15:13 [id number] JUVENAL AGUAYO WELDING [employer]ACH[employer] [facility] [address] [place] [address] 03/16/2022 12:05:02 03/16/2022 14:42:01 Dysuria [id number] R30.0 [id number] DONELL Fowler [address] [place] [address] 03/29/2022 14:10:46 03/29/2022 16:20:52 Venereal disease screening 284785148 Z11.3 Health Concerns Section Related Observation LastModified by Organization Detai ls LastModified Time None Recorded Concern Status LastModified by Organization Details LastModified Time None Recorded Advance Directives Directive None Recorded Payers Encounter Date Sequence Insurance Name Policy Number Policy Muro Covered Member ID Muro Member ID Guarantor Name 03/14/2020 1 [employer] [place] - [place] ([facility] [id number] Mary Pagan [id number] 03/16/2022 1 [place] [id number] Mary Cynthia Latasha [id number] 03/29/2022 1 [place] [id number] Mary M Latasha [id number]
== END 2024-05-15 11:58 | disposition home or self-care (01) ==
LOC: HO.LAB 11:57
PROVIDERS: PCP Nurse Practitioner Family; Visit Provider Nurse Practitioner Family
DX: R17 Unspecified jaundice (principal)
CPT/HCPCS: 36415; 80053; 82248; 85025

== ENCOUNTER 2025-01-28 12:27 | Outpatient (AMB) | payer MEDICAID, SELFPAY ==
[2025-01-28 12:29] VITALS: BP 108/66; PULSE 58; RESP 16; TEMP 36.6; O2SAT 100; BMI 24.1
--- NOTE | 2025-01-28 12:29 | A.OFFPC_ITS ---
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 He is a new patient to the practice, although he was seen previously over three years ago. He reports doing well and denies any symptoms, specifically chest pain, shortness of breath, abdominal pain, blood in stool, constipation, or diarrhea. He is requesting sexually transmitted disease testing but denies any associated symptoms. Health Maintenance - The patient is here for a physical exa m. - Ordered fasting lab work. - The patient requested STD testing. Social History Review of Systems - General: Reports feeling well. - Cardiovascular: Denies chest pain. - Respiratory: Denies shortness of breat h. - Gastrointestinal: Denies abdominal tawanna n, blood in stool, constipation, and diarrhea. - Genitourinary: Denies symptoms concern ing for a sexually transmitted disease. Physical Exam General: Cooperative, healthy appearing, comfortable, no acute distress and well developed Orientation: Patient oriented x3 Limitations: No limitations Head: Normal to inspection Ears: Hearing grossly normal bilaterally Nose: Normal external nose present Face and sinus: Normal facial exam Eyes: Appearance normal, both eyes and all related structures Neck: Normal visual inspection and Yes full ROM Respiratory: Normal respiratory effort and able to speak in complete sentences. Clear to auscultation bilaterally Cardiovascular: Regular rate and rhythm. Normal S1 and S2 GI: Normal to inspection. Soft to palpation and nontender : Testicles without masses/lesions and no hernias appreciated Skin: No rashes or lesions noted Neuro: Patient oriented x3 Extremities: Normal to inspection Results Plan 1. Encounter For General Adult Medical E xamination The patient underwent a physical examination, which was benign. Fasting lab work has been ordered. 2. Encounter For Screening For Sexually Transmitted Infections The patient requested STD testing despite being asymptomatic. Screening will be included in the ordered lab work. Discussion Notes I have seen the patient for a physical exam. He is doing well and denies any complaints. The physical examination was benign. I ordered fasting lab work, which includes STD testing as per his request, although he has no symptoms. Patient Instructions - Please proceed to the laboratory to magana ve your blood drawn for the tests we ordered. - You will need to fast, meaning you aristides uld not eat or drink anything other than water for about 8 hours before the test. [facility] Medical History COVID-19 vaccine series completed Chronic diarrhea Radius/ulna fracture Surgical History History of esophagogastroduodenoscopy (EGD) Hx of colonoscopy S/P ORIF (open reduction internal fixation) fracture (~2013) Family History Mother No problems noted. Father No problems noted. 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 1. Little interest or pleasure in doing things: not at all 2. Feeling down, depressed, or hopeless: not at all 3. Trouble falling or staying asleep, or sleeping too much: not at all 4. Feeling tired or having little energy: not at all 5. Poor appetite or overeating: not at all 6. Feeling bad about yourself - or that you are a failure or have let yourself or your family down: not at all 7. Trouble concentrating on things, such as reading the newspaper or watching television: not at all 8. Moving or speaking so slowly that other people could have noticed. Or the opposite - being so fidgety or restless that you have been moving around a lot more than usual: not at all 9. Thoughts that you would be better off or of hurting yourself in some way: not at all Total score: 0 Depression Screening Interpretation: Negative Depression Screening Done: Yes 13317 - PHQ-9 Billing: Yes Source: Developed by Drs. Caio Mitchell, Omaira Lopez, Christian Mcdonald and colleagues, with an educational bill from [employer]. Thrive Questionnaire Date Thrive assessed: 01/28/25 I am a: Patient What is your living situation today?: I have a steady place to live Within the past 12 months, did the food you bought not last and you didn't have the money to get more?: Never true Within the past 12 months, did you worry whether your food would run out before you got money to buy more?: Never true Do you have trouble paying for medicines?: No Do you have trouble getting transportation to medical appointments?: No Do you have trouble paying your heating and electricity bill?: I choose not to answer this question Do you have trouble taking care of your child, family member or friend?: No Do you have trouble with day-to-day activities such as bathing, preparing meals, shopping, managing finances, etc.?: No Are you currently unemployed and looking for a job?: I choose not to answer this question Are you interested in more education?: No Please select the resources that you would like help with: None Currently or been in a relationship where the following occur: No concerns reported THRIVE Score: 0 AUDIT C Alcohol Use Questionnaire (AUDIT-C) 1. How often do you have a drink containing alcohol?: Monthly or less 2. How many drinks containing alcohol do you have on a typical day when you are drinking?: 1 or 2 3. How often do you have six or more drinks on one occasion?: Never Total Score: 1 Score Reviewed/Action Taken: Yes ELISHA-7 AMB Questionnaire ELISHA-7 Date ELISHA - 7 assessed: 01/28/25 Feeling nervous, anxious, or on edge: 1 = Several days Not being able to stop or control worryin = Not at all Worrying too much about different things: 0 = Not at all Trouble relaxin = Not at all Being so restless that it is hard to sit still: 0 = Not at all Becoming easily annoyed or irritable: 1 = Several days Feeling afraid as if something awful might happen: 0 = Not at all Total ELISHA-7 score (0-4 normal; 5-9 mild; 10-14 moderate; 15-21 severe): 2 Source: Developed by Drs. Caio Mitchell, Omaira Lopez, Christian Mcdonald and colleagues, with an educational bill from [employer]. ELISAH-7 Assessment Billing ELISHA-7 Assessment Tool: ELISHA-7 Assessment 76951 Physical exam (Primary Care) Vital Signs: Last Vital Signs Temp 97.8 F 01/28/25 12:29 Pulse 58 01/28/25 12:29 Resp 16 01/28/25 12:29 BP 108/66 01/28/25 12:29 Pulse Ox 100 01/28/25 12:29 Oxygen Delivery Method Room Air 01/28/25 12:29 BMI result Body Mass Index 24.1 Tobacco/Smoking Status: Tobacco use Status Tobacco use date assessed 01/28/25 01/28/25 12:35 Patient Tobacco Use Status Never used Tobacco 01/28/25 12:35 e-Cigarette/Vaping Use Never Used 01/28/25 12:35 PHQ-9: PHQ-9 Score PHQ-9: Total score 0 01/28/25 12:35 Depression Screening Interpretation: Negative Thrive Assessment: Date of Thrive Assessment Date Thrive assessed 01/28/25 01/28/25 12:35 Currently or been in a relationship where the following occur: No concerns reported Coding Level of Care Code New Pt Prev Care 18-39yr(84129 Diagnoses Physical exam Z00.00 Screening for STD (sexually transmitted disease) Z11.3 Additional Codes ELISHA-7 Assessment Billing - ELISHA-7 Assessment Tool: ELISHA-7 Assessment 07154 ([id number]) PHQ-9 - 96443 - PHQ-9 Billing: Yes ([id number]) Assessment & Plan Assessment & Plan (1) Physical exam: Code(s): Z00.00 - Encounter for general adult medical examination without abnormal findings Category: Medical (2) Screening for STD (sexually transmitted disease): Code(s): Z11.3 - Encounter for screening for infections with a predominantly sexual mode of transmission Category: Medical Plan . Orders: Orders Complete Blood Count Auto Diff Today Z00.00 - Encounter for general adult medical examination without abnormal findings Comprehensive [place]. Panel Fast Today Z00.00 - Encounter for general adult medical examination without abnormal findings Lipid Panel Today Z00.00 - Encounter for general adult medical examination without abnormal findings HIV Ab/Ag Today Z11.3 - Encounter for screening for infections with a predominantly sexual mode of transmission Syphilis Screen Today Z11.3 - Encounter for screening for infections with a predominantly sexual mode of transmission CT NG by PCR Urine Today Z11.3 - Encounter for screening for infections with a predominantly sexual mode of transmission Hepatitis A,B,C Profile Today Z11.3 - Encounter for screening for infections with a predominantly sexual mode of transmission TSH reflex Free T4 Today Z00.00 - Encounter for general adult medical examination without abnormal findings UA CC w/rflx Micro + Cult Today Z00.00 - Encounter for general adult medical examination without abnormal findings
== END 2025-01-28 13:11 | disposition home or self-care (01) ==
LOC: HO.HMCC 12:28
PROVIDERS: PCP Nurse Practitioner Family; Visit Provider Nurse Practitioner Family
DX: Z00.00 Encounter for general adult medical examination without abnormal findings (principal); Z11.3 Encounter for screening for infections with a predominantly sexual mode of transmission

== ENCOUNTER 2025-01-28 12:27 | Outpatient (REF) | payer MEDICAID, SELFPAY ==
[2025-01-28 16:14] LABS: MANUAL DIFF FLAG NO
[2025-01-28 16:17] LABS: Hematocrit 47.4 % (42.0-52.0); Hemoglobin 15.9 g/dl (14.0-18.0); Imm Gran Abs Auto 0.01 X10*3/uL (0.00-0.03); Imm Gran Pct Auto 0.2 % (0.0-0.4); Lymphocytes Absolute Auto 1.6 X10*3/uL (1.2-4.9); Mean Corpuscular HGB Conc 33.5 g/dl (31.0-36.0); Mean Corpuscular Hemoglobin 30.2 pg (27.0-33.0); Mean Corpuscular Volume 90.1 fL (80.0-98.0); NRBC Abs Auto 0.000 X10*3/uL (0.0-0.012); NRBC Pct Auto 0.0 /100WBC (0.0-0.2); Platelet Count 301 X10*3/uL (160-400); Red Blood Count 5.26 X10*6/uL (4.60-5.80); White Blood Count 6.2 X10*3/uL (4.8-10.8)
[2025-01-28 16:19] LABS: Appearance Urine Clear; Glucose Urine UA Negative (Negative); PH 8.0 (5.0-9.0); Specific Gravity - Urine 1.020 (1.005-1.025)
[2025-01-28 16:50] LABS: Alanine Aminotransferase 20 U/L (0-40); Albumin Level 5.0 g/dL (3.5-5.0); Alkaline Phosphatase 53 U/L (39-117); Anion Gap 8 (12-20); Aspartate Amino Transferase 28 U/L (5-37); Blood Urea Nitrogen 15 mg/dL (9-16); Calcium 9.6 mg/dL (8.4-10.2); Carbon Dioxide 31 mmol/L (22-29); Chloride 106 mmol/L (96-108); Cholesterol 170 mg/dL (<200); Estimated Glomerular Filt Rate > 60; HDL Cholesterol 54 mg/dL (>40); Potassium 4.2 mmol/L (3.3-5.1); Sodium 141 mmol/L (135-145); Total Protein 7.4 g/dL (6.5-8.0); Triglycerides 70 mg/dL (<150)
[2025-01-29 03:30] LABS: CT PCR Urine NOT DETECTED (Not Detect.); NG PCR Urine NOT DETECTED (Not Detect.)
[2025-01-29 03:34] LABS: Syphilis Screen Nonreactive (Nonreactive)
[2025-01-29 04:06] LABS: HBS Num1 1.99 mIU/mL (0-7.99); HBc Num1 0.08 S/CO (0.00-0.79); HBsAGNum1 0.67 S/CO (0.00-0.99); HIV Num 1 0.05 S/CO (0.00-0.99); Hepatitis A Antibody IgM 0.16 Index (0-0.79); Hepatitis B Surface Antigen Negative (Negative); ~HepC Num1 0.07 S/CO (0.00-0.79); ~Hepatitis A Antibody IgM Nonreactive (Nonreactive); ~Hepatitis B Surface Antibody NONREACTIVE (Nonreactive); ~Hepatitis C Antibody Nonreactive (Nonreactive)
== END 2025-01-28 12:28 | disposition home or self-care (01) ==
LOC: HO.HMGCLDS 12:27
PROVIDERS: PCP Nurse Practitioner Family; Visit Provider Nurse Practitioner Family
DX: Z00.00 Encounter for general adult medical examination without abnormal findings (principal); Z11.3 Encounter for screening for infections with a predominantly sexual mode of transmission; Z79.899 Other long term (current) drug therapy
CPT/HCPCS: 80053; 80061; 81003; 84443; 85025; 86704; 86706; 86709; 86780; 86803; 87340; 87389; 87491; 87591; 96127; 99385